=== PATIENT | female | born 1935 | race Caucasian/White ===

== ENCOUNTER 2020-01-15 14:59 | Inpatient (IN) | payer MEDICARE ==
[~2020-01-15] VITALS: Ht 152.4 cm; Wt 49.0 kg
[~2020-01-15 14:59] MED LIST: AMLO2.5T2 PO; ASPI-605 PO; BISA-79 PO; DIPH25CA83 PO; DIPH50VI14 IVP; DOCU-141 PO; ERGO500014 PO; FERR325T6 PO; GEL100GE MC; GENT80PI6 IV; HYDR-3326 PO; LISI10TA5 PO; MINO100T PO; POLY15DR31 OP; PREG100C PO; SENN-18 PO; ZOLP5TAB2 PO
[2020-01-15] MEDS ORDERED: MIRT15TA PO (20:23)
[2020-01-15] MEDS ORDERED: VORI200T4 PO (20:23)
[2020-01-15] MEDS ORDERED: HYDR-4384 PO (20:23)
[2020-01-15] MEDS ORDERED: PREG100C PO (20:23)
[2020-01-15] MEDS ORDERED: LACT-246 PO (20:23)
[2020-01-15] MEDS ORDERED: METO-356 PO (20:23)
[2020-01-15] MEDS ORDERED: MAGN400T8 PO (20:23)
[2020-01-15] MEDS ORDERED: ERGO500040 PO (20:23)
[2020-01-15] MEDS ORDERED: ACET-2154 PO (20:23)
[2020-01-15] MEDS ORDERED: LIDO30AD10 TD (20:23)
[2020-01-15] MEDS ORDERED: METF-440 PO (20:23)
[2020-01-15] MEDS ORDERED: MULT-24 PO (20:23)
[2020-01-15 20:28] VITALS: BP 121/48
[2020-01-15] MEDS ORDERED: Z GUARD REMEDY PASTE 57 GM TUBE TOP PRN (20:30)
--- NOTE | 2020-01-15 21:06 | NUR ---
Pt arrived in the unit at 1945 via gurney accompanied by flatbed stitcher from [facility]. AAO x2-3, [place] speaking, pt speaks little Guatemalan. No acute distress noted. Denies pain/ discomfort. Pertinent assessment done. Notified Dr. Day and Dr. Maxwell of admission. Awaiting med recon from Dr. Maxwell. Safety measures maintained. Call light and personal items within reach. Will continue to monitor.
[2020-01-15] MEDS ORDERED: BISACODYL 5 MG TABLET.DR PO PRN (21:45)
[2020-01-15] MEDS ORDERED: ACETAMINOPHEN 325 MG TABLET PO PRN (21:45)
[2020-01-15] MEDS: ENSURE ENLIVE (VAN) 240 ML LIQUID PO SCH (22:52)
[2020-01-16 05:08] VITALS: BP 135/50
[2020-01-16 07:47] VITALS: BP 151/57
[2020-01-16] MEDS: MULTIVITAMINS,THERAPEUTIC TABLET PO SCH (08:50)
[2020-01-16] MEDS: METFORMIN HCL 500 MG TABLET PO SCH (08:50)
[2020-01-16] MEDS: FERROUS SULFATE 325 MG TABEC PO SCH (08:50)
[2020-01-16] MEDS: MAGNESIUM OXIDE 400 MG TABLET PO SCH (08:50)
[2020-01-16] MEDS: ASPIRIN EC 81 MG TABLET.DR PO SCH (08:50)
[2020-01-16] MEDS: HYDROCODONE/APAP 5-325MG TABLET PO PRN ×2 (08:58→21:43)
[2020-01-16] MEDS: ENSURE ENLIVE (VAN) 240 ML LIQUID PO SCH ×3 (08:58→17:31)
[2020-01-16 09:00] LABS: CARBON DIOXIDE 35 mmol/L (21-32); CHLORIDE 105 mmol/L (98-107); CREATININE 0.8 mg/dL (0.6-1.3); GLUCOSE 120 mg/dL (74-106); POTASSIUM 4.7 mmol/L (3.5-5.1); UREA NITROGEN, BLOOD 12 mg/dL (7-18)
[2020-01-16] MEDS ORDERED: METOPROLOL SUCCINATE XL 25 MG TAB.SR.24H PO SCH (09:00)
[2020-01-16] MEDS ORDERED: METOPROLOL SUCCINATE XL 25 MG TAB.SR.24H PO ONE (09:00)
[2020-01-16] MEDS ORDERED: LIDOCAINE 5% PATCH TD SCH (09:00)
[2020-01-16] MEDS: LIDOCAINE 5% PATCH TD SCH (10:03)
[2020-01-16] MEDS: VORICONAZOLE 200 MG TABLET PO SCH ×2 (10:03→20:54)
--- NOTE | 2020-01-16 11:57 | NUR ---
WOUND CARE CONSULT: PT FOLLOWED BY PLASTIC SURGERY TEAM FOR WOUND CARE. DEFER TO SURGICAL TEAM FOR WOUND TREATMENT PLAN. WILL SEE PRN. DISCUSSED SKIN PROTECTION WITH NURSING STAFF. FIRST STEP LOW AIRLOSS MATTRESS NOTED TO BE ON ORDER. MD IN AGREEMENT WITH PLAN OF CARE.
[2020-01-16 16:02] VITALS: BP 125/64
[2020-01-16 20:06] VITALS: BP 142/60
[2020-01-16] MEDS: MIRTAZAPINE 15 MG TABLET PO SCH (20:54)
[2020-01-16] MEDS: PREGABALIN 100 MG CAPSULE PO SCH (20:54)
--- NOTE | 2020-01-16 23:53 | NUR ---
Received pt resting in bed. AAO x2. No acute distress noted. Brent Pretty 02/08 for back pain. Due meds and prn pain med given as ordered. Safety measures maintained. Call light and personal items within reach. Will continue to monitor.
[2020-01-17 00:09] VITALS: BP 150/62
[2020-01-17 04:12] VITALS: BP 150/62
[2020-01-17 06:40] LABS: BASOPHILS % (AUTO) 0.1 % (0.0-2.0); EOSINOPHILS # (AUTO) 0.2 K/uL (0.0-0.7); EOSINOPHILS % (AUTO) 0.6 % (0.0-7.0); HEMOGLOBIN 10.7 g/dL (10.9-14.3); LYMPHOCYTES # (AUTO) 21.1 K/uL (20.0-40.0); LYMPHOCYTES % (AUTO) 68.9 % (20.5-51.5); MEAN CORPUSCULAR HEMOGLOBIN 29.4 uug (24.7-32.8); MEAN CORPUSCULAR HGB CONC 32 g/dL (32.3-35.6); MONOCYTES # (AUTO) 1.1 K/uL (2.0-10.0); MONOCYTES % (AUTO) 3.6 % (0.0-11.0); NEUTROPHILS # (AUTO) 8.2 K/uL (1.8-8.9); NEUTROPHILS % (AUTO) 26.8 % (38.5-71.5); PLATELET COUNT (AUTO) 338 K/uL (179-408); RED BLOOD CELL COUNT(AUTO) 3.62 MIL/uL (3.63-4.92)
[2020-01-17 07:09] LABS: THYROID STIMULATING HORMONE 0.056 mIU/mL (0.358-3.740)
[2020-01-17 07:20] LABS: BILIRUBIN,TOTAL 0.4 mg/dL (0.2-1.0); MAGNESIUM 1.5 mg/dL (1.8-2.4); PHOSPHOROUS 2.7 mg/dL (2.5-4.9); POTASSIUM 4.6 mmol/L (3.5-5.1); TOTAL PROTEIN, SERUM 5.8 g/dL (6.4-8.2)
[2020-01-17 07:22] LABS: WHITE BLOOD COUNT (AUTO) 30.7 K/uL (3.8-11.8)
[2020-01-17 08:00] VITALS: BP 128/46
[2020-01-17] MEDS: MAGNESIUM OXIDE 400 MG TABLET PO SCH (08:25)
[2020-01-17] MEDS: MULTIVITAMINS,THERAPEUTIC TABLET PO SCH (08:25)
[2020-01-17] MEDS: METFORMIN HCL 500 MG TABLET PO SCH (08:25)
[2020-01-17] MEDS: FERROUS SULFATE 325 MG TABEC PO SCH (08:25)
[2020-01-17] MEDS: METOPROLOL SUCCINATE XL 25 MG TAB.SR.24H PO SCH (08:26)
[2020-01-17] MEDS: ASPIRIN EC 81 MG TABLET.DR PO SCH (08:26)
[2020-01-17] MEDS: VORICONAZOLE 200 MG TABLET PO SCH (08:26)
[2020-01-17] MEDS: ENSURE ENLIVE (VAN) 240 ML LIQUID PO SCH ×3 (08:28→17:29)
[2020-01-17] MEDS: LIDOCAINE 5% PATCH TD SCH (08:28)
[2020-01-17 08:55] LABS: LYMPHOCYTES % (MANUAL) 67 % (20-40); MONOCYTES % (MANUAL) 1 % (2-10); NEUTROPHILS % (MANUAL) 27 % (42-75)
[2020-01-17] MEDS ORDERED: ERGOCALCIFEROL 50,000 UNIT CAPSULE PO SCH (09:00)
[2020-01-17] MEDS ORDERED: MAGNESIUM OXIDE 400 MG TABLET PO ONE (09:30)
[2020-01-17 10:21] LABS: *BILIRUBIN,URIN NEGATIVE (NEGATIVE); *BLOOD, URINE 3+ (NEGATIVE); *CLARITY,URINE CLOUDY (CLEAR); *COLOR,URINE YELLOW (YELLOW); *KETONES,URINE NEGATIVE (NEGATIVE); *UROBILINOGEN,URINE 0.2 E.U./dl (NORMAL); LEUKOCYTE ESTERASE ,URINE 3+ (NEGATIVE); NITRITE, URINE NEGATIVE (NEGATIVE); PH,URINE 8.5 (5.0-8.0); UGLUCOSE NEGATIVE (NEGATIVE)
[2020-01-17 10:31] LABS: SQUAMOUS EPITHELIAL CELL,UR FEW /HPF (NONE SEEN)
[2020-01-17 10:34] LABS: WBC,URINE TNTC /HPF (0-3)
[2020-01-17 10:35] LABS: BACTERIA,URINE FEW /HPF (NONE SEEN); MUCUS,URINE NONE SEEN /LPF (0-FEW); RBC,URINE 80-100 /HPF (0-3)
[2020-01-17 10:36] LABS: CALCIUM PHOSPHATE CRYSTALS,UR RARE /HPF (NONE SEEN)
[2020-01-17 16:16] VITALS: BP 99/51
[2020-01-17 20:27] VITALS: BP 124/55
[2020-01-17] MEDS: MIRTAZAPINE 15 MG TABLET PO SCH (20:48)
[2020-01-17] MEDS: PREGABALIN 100 MG CAPSULE PO SCH (20:48)
[2020-01-17] MEDS: CEphaleXIN 500 MG CAPSULE PO SCH (21:40)
--- NOTE | 2020-01-18 04:16 | NUR ---
Received patient in bed. AAO x 1, only by name, very confused, talking about a baby in her bed and asking to take a good care of him. No acute distress or SOB was noted. On room air. On air mattress. No Complain of pain. Physical assessment done. Safety measures maintained. Fall prevention observed. Skin assessed, skin care rendered. All due medications administered and tolerated well. All needs attended promptly. Bed in locked and low position, side rails up x2 for safety, bed alarm on. Call light and frequently using items within reach. Continue to monitor and will endorse to day shift nurse.
[2020-01-18 06:10] VITALS: BP 133/59
[2020-01-18 08:43] VITALS: BP 104/65
[2020-01-18] MEDS: ENSURE ENLIVE (VAN) 240 ML LIQUID PO SCH ×3 (08:43→17:24)
[2020-01-18] MEDS: MULTIVITAMINS,THERAPEUTIC TABLET PO SCH (08:43)
[2020-01-18] MEDS: FERROUS SULFATE 325 MG TABEC PO SCH (08:43)
[2020-01-18] MEDS: CEphaleXIN 500 MG CAPSULE PO SCH ×2 (08:43→20:51)
[2020-01-18] MEDS: METFORMIN HCL 500 MG TABLET PO SCH (08:43)
[2020-01-18] MEDS: MAGNESIUM OXIDE 400 MG TABLET PO SCH (08:43)
[2020-01-18] MEDS: LIDOCAINE 5% PATCH TD SCH (08:44)
[2020-01-18] MEDS: METOPROLOL SUCCINATE XL 25 MG TAB.SR.24H PO SCH (08:45)
[2020-01-18] MEDS: ASPIRIN EC 81 MG TABLET.DR PO SCH (08:46)
[2020-01-18] MEDS: HYDROCODONE/APAP 5-325MG TABLET PO PRN (09:01)
[2020-01-18 16:40] VITALS: BP 99/46
--- NOTE | 2020-01-18 18:22 | NUR ---
Noted patient with episode of decreased BP 88/42, P 101. Patient denies any pain or discomfort. Elevated legs, encouraged increased fluid intake, repeat BP showed 99/46, P 98. Informed Dr. Liu regarding BP and that metoprolol was held in the morning, as well as episode of dizziness noted during therapy per PT. No order at this time and per MD he will look into it. Patient remains alert, oriented x 2-3, not in any form of distress. Assisted with her needs promptly. Call light and frequently used items placed within patient's reach. Kept patient clean, dry and comfortable. Turned and repositioned every 2 hrs.
--- NOTE | 2020-01-18 19:45 | NUR ---
Awake, and alert. In bed with HOB elevated. Denies any pain/discomforts at this time. Very pleasant and cooperative. Safety measures and fall precaution maintained. Continue care as planned.
[2020-01-18 20:12] VITALS: BP 127/47
[2020-01-18] MEDS: MIRTAZAPINE 15 MG TABLET PO SCH (20:51)
[2020-01-18] MEDS: PREGABALIN 100 MG CAPSULE PO SCH (20:52)
[2020-01-19 04:12] VITALS: BP 111/46
--- NOTE | 2020-01-19 06:06 | NUR ---
Shift End Report: VS stable. Slept good. No complaint presented all night. No fall/injury. All needs attended and met. Good skin/jaqueline care rendered after each incontinence. No significant event reported. Continue current rehab plan of care.
[2020-01-19 08:00] VITALS: BP 110/50
[2020-01-19] MEDS: METFORMIN HCL 500 MG TABLET PO SCH (08:00)
[2020-01-19] MEDS: MULTIVITAMINS,THERAPEUTIC TABLET PO SCH (08:00)
[2020-01-19] MEDS: CEphaleXIN 500 MG CAPSULE PO SCH (08:00)
[2020-01-19] MEDS: ASPIRIN EC 81 MG TABLET.DR PO SCH (08:00)
[2020-01-19] MEDS: FERROUS SULFATE 325 MG TABEC PO SCH (08:00)
[2020-01-19] MEDS: MAGNESIUM OXIDE 400 MG TABLET PO SCH (08:01)
[2020-01-19] MEDS: LIDOCAINE 5% PATCH TD SCH (08:01)
[2020-01-19] MEDS: ENSURE ENLIVE (VAN) 240 ML LIQUID PO SCH ×3 (08:01→17:26)
[2020-01-19] MEDS: METOPROLOL SUCCINATE XL 25 MG TAB.SR.24H PO SCH (08:02)
[2020-01-19] MEDS: HYDROCODONE/APAP 5-325MG TABLET PO PRN ×2 (08:12→15:06)
--- NOTE | 2020-01-19 09:00 | NUR ---
patient left for her infusion therapy to [facility] with ambulance, back brace is on, no distress, patient is alert, oriented x4, verbally responsive, no sob, resp even nonlabored, skin warm and dry to touch.
--- NOTE | 2020-01-19 12:36 | NUR ---
INDIVIDUALIZED PLAN OF CARE
--- NOTE | 2020-01-19 12:39 | NUR ---
PATIENT IS STILL OUT OF PASS FOR HER INFUSION THERAPY
--- NOTE | 2020-01-19 13:02 | NUR ---
PATIENT STILL OUT OF PASS
[2020-01-19 15:43] VITALS: BP 93/47
[2020-01-19 15:46] VITALS: BP 105/45
--- NOTE | 2020-01-19 16:08 | NUR ---
INDIVIDUALIZED PLAN OF CARE
--- NOTE | 2020-01-19 17:14 | NUR ---
spoke to caregiver and daughter in detail about their concerns, patient is alert, oriented x3, no sob, resp even nonlabored, skin warm and dry to touch, no hematuria noted. patient perineal area wound and wound at left buttock almost closed. no drainage noted.
[2020-01-19] MEDS: ACIDOPHILUS/BULGARICUS CHEW TAB PO SCH (17:25)
[2020-01-19] MEDS: CEFEPIME HCL 1 G in IV DEXTROSE 5% 50 ML IV SCH ×3 (17:26→20:43)
--- NOTE | 2020-01-19 17:58 | NUR ---
patient offered her IV antibiotic and IV insertion, patient stated " I do not want IV ti be inserted, it hurts, I refuse IV antibiotic, I have a right to refuse' patient right respected, explained to patient that IV antibiotic is for UTI, infection in the urine, patient stated " if my urine is not hurting me let the bacteria be there. it is not hurting me" explained benefit and risk, patient is alert, oriented x3, clearly understands the meaning of medication and type of infection. Addendum: 01/19/20 at 1803 by QUIQUE JACKSON RN, RN current IV noted with infiltration.
--- NOTE | 2020-01-19 18:19 | NUR ---
daughter made aware as well regarding patient refusal for atb Addendum: 01/19/20 at 1823 by QUIQUE JACKSON RN, RN no distress, no hematuria noted, no odor noted from urine, no fever noted, patient able tolerate melas, patient denied nausea, or vomiting, continue to monitor closely
--- NOTE | 2020-01-19 18:49 | NUR ---
aware Addendum: 01/19/20 at 1850 by QUIQUE JACKSON RN, RN aware regarding patient refusal of medication
--- NOTE | 2020-01-19 19:40 | NUR ---
Awake and alert, sitting on top of the bed, watching TV when received. No s/s of respiratory distress. Denies any pain/discomforts at this time. Safety measures and fall precaution maintained. Continue care as planned.
[2020-01-19 20:21] VITALS: BP 100/51
--- NOTE | 2020-01-19 20:32 | NUR ---
Charge nurse inserted Nicole needle to patient Port A Cath to initiate IV ATB as ordered for UTI. Patient tolerated procedure well. IV ATB initiated as ordered. Will monitor s/s of adverse reaction.
[2020-01-19] MEDS: MIRTAZAPINE 15 MG TABLET PO SCH (20:44)
[2020-01-19] MEDS: PREGABALIN 100 MG CAPSULE PO SCH (20:44)
[2020-01-20 05:28] VITALS: BP 117/39
--- NOTE | 2020-01-20 06:09 | NUR ---
Shift End Report: VS stable. Slept well. No problem/complaint presented. No fall/injury. No s/s of adverse reaction from Maxepime. All needs attended and met. No significant event reported all night. Continue current rehab plan of care.
[2020-01-20] MEDS: HYDROCODONE/APAP 5-325MG TABLET PO PRN ×2 (06:49→17:15)
--- NOTE | 2020-01-20 07:50 | NUR ---
Patient noted resting in bed, no facial cues of pain, no signs of distress noted, call light in reach, bed locked and lowest position, all needs met at this time
[2020-01-20] MEDS: ACIDOPHILUS/BULGARICUS CHEW TAB PO SCH ×2 (08:07→17:15)
[2020-01-20] MEDS: MAGNESIUM OXIDE 400 MG TABLET PO SCH (08:07)
[2020-01-20] MEDS: ASPIRIN EC 81 MG TABLET.DR PO SCH (08:07)
[2020-01-20] MEDS: FERROUS SULFATE 325 MG TABEC PO SCH (08:08)
[2020-01-20] MEDS: METFORMIN HCL 500 MG TABLET PO SCH (08:08)
[2020-01-20] MEDS: LIDOCAINE 5% PATCH TD SCH (08:08)
[2020-01-20] MEDS: MULTIVITAMINS,THERAPEUTIC TABLET PO SCH (08:08)
[2020-01-20] MEDS: ENSURE ENLIVE (VAN) 240 ML LIQUID PO SCH ×3 (08:11→17:16)
[2020-01-20] MEDS: METOPROLOL SUCCINATE XL 25 MG TAB.SR.24H PO SCH (08:11)
[2020-01-20 08:50] VITALS: BP 117/45
[2020-01-20 16:10] VITALS: BP 116/40
[2020-01-20] MEDS: CEFEPIME HCL 1 G in IV DEXTROSE 5% 50 ML IV SCH (17:16)
--- NOTE | 2020-01-20 19:08 | NUR ---
no changes this shift, complaints of pain this shift, PRN pain medication given, all needs met
[2020-01-20 20:00] VITALS: BP 112/40
[2020-01-20] MEDS: PREGABALIN 100 MG CAPSULE PO SCH (20:27)
[2020-01-20] MEDS: MIRTAZAPINE 15 MG TABLET PO SCH (20:27)
[2020-01-21 05:02] VITALS: BP 118/49
--- NOTE | 2020-01-21 06:53 | NUR ---
Shift End Report: VS stable. Slept well. No problem/complaint presented. No fall/injury. All needs attended and met. No significant event reported all night. Continue current rehab plan of care
[2020-01-21 08:00] VITALS: BP 130/57
[2020-01-21] MEDS: FERROUS SULFATE 325 MG TABEC PO SCH (08:35)
[2020-01-21] MEDS: MULTIVITAMINS,THERAPEUTIC TABLET PO SCH (08:35)
[2020-01-21] MEDS: METFORMIN HCL 500 MG TABLET PO SCH (08:35)
[2020-01-21] MEDS: ASPIRIN EC 81 MG TABLET.DR PO SCH (08:35)
[2020-01-21] MEDS: HYDROCODONE/APAP 5-325MG TABLET PO PRN ×2 (08:35→17:36)
[2020-01-21] MEDS: MAGNESIUM OXIDE 400 MG TABLET PO SCH (08:35)
[2020-01-21] MEDS: ACIDOPHILUS/BULGARICUS CHEW TAB PO SCH ×2 (08:35→17:36)
[2020-01-21] MEDS: ENSURE ENLIVE (VAN) 240 ML LIQUID PO SCH ×3 (08:36→17:37)
[2020-01-21] MEDS: METOPROLOL SUCCINATE XL 25 MG TAB.SR.24H PO SCH (08:36)
[2020-01-21] MEDS: LIDOCAINE 5% PATCH TD SCH (08:36)
[2020-01-21 16:57] VITALS: BP 125/42
[2020-01-21] MEDS: CEFEPIME HCL 1 G in IV DEXTROSE 5% 50 ML IV SCH (17:37)
--- NOTE | 2020-01-21 19:20 | NUR ---
Received patient lying in bed. AAOx2-3. In no acute distress. Denies any pain or SOB. Port a cath on right upper chest intact and patent. Safety measure initiated and call pabon within reached.
[2020-01-21 20:23] VITALS: BP 112/43
[2020-01-21] MEDS: MIRTAZAPINE 15 MG TABLET PO SCH (20:25)
[2020-01-21] MEDS: PREGABALIN 100 MG CAPSULE PO SCH (20:25)
[2020-01-22 05:17] VITALS: BP 121/52
--- NOTE | 2020-01-22 06:06 | NUR ---
Slept well last night. In no acute distress. Denies any pain or SOB. Port a cath on right upper chest intact and patent. Needs assessed and attended to. Safety measure maintained and call pabon within reached.
[2020-01-22 08:00] VITALS: BP 119/53
[2020-01-22] MEDS: MAGNESIUM OXIDE 400 MG TABLET PO SCH (09:00)
[2020-01-22] MEDS: ACIDOPHILUS/BULGARICUS CHEW TAB PO SCH ×2 (09:00→16:54)
[2020-01-22] MEDS: FERROUS SULFATE 325 MG TABEC PO SCH (09:00)
[2020-01-22] MEDS: MULTIVITAMINS,THERAPEUTIC TABLET PO SCH (09:00)
[2020-01-22] MEDS: ASPIRIN EC 81 MG TABLET.DR PO SCH (09:01)
[2020-01-22] MEDS: LIDOCAINE 5% PATCH TD SCH (09:02)
[2020-01-22] MEDS: HYDROCODONE/APAP 5-325MG TABLET PO PRN ×2 (09:02→17:00)
[2020-01-22] MEDS: ENSURE ENLIVE (VAN) 240 ML LIQUID PO SCH ×3 (09:02→16:54)
[2020-01-22] MEDS: METOPROLOL SUCCINATE XL 25 MG TAB.SR.24H PO SCH (09:02)
[2020-01-22] MEDS: METFORMIN HCL 500 MG TABLET PO SCH (09:05)
[2020-01-22 15:58] VITALS: BP 132/54
[2020-01-22] MEDS: CEFEPIME HCL 1 G in IV DEXTROSE 5% 50 ML IV SCH (16:54)
[2020-01-22] MEDS ORDERED: FOSFOMYCIN TROMETHAMINE 3 GM PACKET PO ONE (18:30)
[2020-01-22 20:00] VITALS: BP 114/54
--- NOTE | 2020-01-22 20:10 | NUR ---
PHARMACY CLINICAL NOTES (GENTAMICIN DOSING) S: 84 YO female with history of recurrent UTI, immunocompromised with past medical HX of recurrent CLL. Her UC + for citrobacter and E.coli sens. to Gent. ordered gentamicin O: BUN/SCR 14/1.0, WBC 30.7 (RESULTS FROM 01/17/20), Temp 98.5, dosing wt 49 kg, t 1/2 6.93 hrs A/P: Will dose Gentamicin as 60 mg q18h, estimated peak of 6.2 and trough of 1.08. Plan to order peak and trough around 3rd dose (steady state) on 01/23 @ 0900 AM. Will continue to monitor renal fxn and levels and adjust the dose as it becomes necessary.
[2020-01-22] MEDS: PREGABALIN 100 MG CAPSULE PO SCH (21:56)
[2020-01-22] MEDS: MIRTAZAPINE 15 MG TABLET PO SCH (21:56)
--- NOTE | 2020-01-22 22:00 | NUR ---
Patient received sleeping in bed, abusable to name. No signs and symptoms of distress noted, no SOB noted. Denies any pain or discomfort at this time. All due medications administered and taken as tolerable. PM care completed. Patient is clean and comfortable resting in bed. Call light in reach, safety precaution in place; bed locked and lowest position, all needs met at this time. Will continue to monitor.
[2020-01-22] MEDS: AMOXicillin 250 MG CAPSULE PO SCH (22:01)
[2020-01-22] MEDS: GENTAMICIN SULFATE INJ 60 MG in IV DEXTROSE 5% 50 ML IV SCH (22:05)
[2020-01-23 04:35] VITALS: BP 120/52
--- NOTE | 2020-01-23 05:43 | NUR ---
Slept well through the night. No signs of distress noted. Denies any pain or discomfort., no SOB. Port a cath on right upper chest intact and patent. Needs attended to promptly. Safety measure maintained and call light and personal items within patients reach. within reached. will continue plan of acre and endorse next shift accordingly.
[2020-01-23] MEDS: AMOXicillin 250 MG CAPSULE PO SCH ×3 (05:53→21:10)
[2020-01-23] MEDS: FERROUS SULFATE 325 MG TABEC PO SCH (08:27)
[2020-01-23] MEDS: MAGNESIUM OXIDE 400 MG TABLET PO SCH (08:28)
[2020-01-23] MEDS: ACIDOPHILUS/BULGARICUS CHEW TAB PO SCH ×2 (08:28→16:45)
[2020-01-23] MEDS: METFORMIN HCL 500 MG TABLET PO SCH (08:28)
[2020-01-23] MEDS: MULTIVITAMINS,THERAPEUTIC TABLET PO SCH (08:28)
[2020-01-23] MEDS: ENSURE ENLIVE (VAN) 240 ML LIQUID PO SCH ×3 (08:29→16:46)
[2020-01-23] MEDS: METOPROLOL SUCCINATE XL 25 MG TAB.SR.24H PO SCH (08:30)
[2020-01-23] MEDS: ASPIRIN EC 81 MG TABLET.DR PO SCH (08:40)
[2020-01-23] MEDS: HYDROCODONE/APAP 5-325MG TABLET PO PRN ×3 (08:40→22:47)
[2020-01-23 08:51] VITALS: BP 103/49
[2020-01-23] MEDS: LIDOCAINE 5% PATCH TD SCH (08:53)
--- NOTE | 2020-01-23 13:25 | NUR ---
PHARMACY CLINICAL NOTES (GENTAMICIN DOSING) S: 84 YO female with history of recurrent UTI, immunocompromised with past medical HX of recurrent CLL. Her UC + for citrobacter and E.coli sens. to Gent. ordered gentamicin O: BUN/SCR 14/1.0(01/16), WBC 30.7 (RESULTS FROM 01/17/20), Temp 98.2, dosing wt 49 kg, t 1/2 6.93 hrs A/P: Will continue Gentamicin as 60 mg q18h, estimated peak of 6.2 and trough of 1.08. Plan to order peak and trough around 3rd dose (steady state:ordered for tomorrow 9 am dose) . Will continue to monitor renal fxn and levels and adjust the dose as it becomes necessary.
--- NOTE | 2020-01-23 14:42 | NUR ---
patient is alert, oriented x3, no sob, resp even nonlabored, skin warm and dry to touch, skin inspected, no new issues noted, heels floated on pillows, skin intact, beau cath intact. no hematuria noted continue on atb iv for uti, no odor noted from the urine. no adverse reactions noted from atb, tolerated meals well, no nausea, no vomiting Addendum: 01/23/20 at 1744 by QUIQUE JACKSON RN RN patient's right heel noted with closed blister size 5.5cm x5cm, covered with mepilex and kerlix to keep the mepilex in place. patient is on air mattress, heels floated on pillows, educated patient as well to float her heels all the time, patient like to stay on her back, educated patient to stay on her side to relieve the pressure, continue to monitor, wound consult in place.
[2020-01-23] MEDS: GENTAMICIN SULFATE INJ 60 MG in IV DEXTROSE 5% 50 ML IV SCH (14:58)
[2020-01-23 15:30] VITALS: BP 118/55
[2020-01-23 20:00] VITALS: BP 112/53
--- NOTE | 2020-01-23 20:03 | NUR ---
Patient received resting in bed watching TV. Axox 4, in a very happy mood to see me tonight. No signs and symptoms of distress noted, no SOB noted. Denies any pain or discomfort at this time. Skin intact, Both legs elevated by pillow. Patient is clean and comfortable resting in bed. Call light in reach, safety precaution in place; bed locked and lowest position, all needs met at this time. Will continue to monitor. Addendum: 01/23/20 at 2013 by FALLON MASON RN Patient is watching tV. Axox 2, very confused, need reorientation. Forgetful and looses train of thought. Denies any pain or discomfort at the times. No signs and symptoms of distress/SOB noted. Patient is clean and dry at the time. positioned on her left side. Safety measures maintained, call light and all items within patient reach. Will continue to monitor through the night.
[2020-01-23] MEDS: MIRTAZAPINE 15 MG TABLET PO SCH (21:09)
[2020-01-23] MEDS: PREGABALIN 100 MG CAPSULE PO SCH (21:09)
--- NOTE | 2020-01-23 23:12 | NUR ---
Patient moaning and has facial grimace, complaint of back pain. Administered norco, effective. PM care completed patient is clean, dry, and comfortable resting watching TV. All needs attended to promptly.Safety measure maintained, call light with reach. Will continue to monitor through the night.
[2020-01-24 04:00] VITALS: BP 123/42
--- NOTE | 2020-01-24 05:10 | NUR ---
Slept well through the night. No signs of distress noted. Denies any pain or discomfort., no SOB. Port a cath on right upper chest intact and patent. Needs attended to promptly. Safety measure maintained and call light and personal items within patients reach. within reached. Will continue plan of acre and endorse next shift accordingly.
[2020-01-24] MEDS: AMOXicillin 250 MG CAPSULE PO SCH ×3 (06:00→21:16)
[2020-01-24 08:00] VITALS: BP 117/51
[2020-01-24] MEDS: METFORMIN HCL 500 MG TABLET PO SCH (08:35)
[2020-01-24] MEDS: ACIDOPHILUS/BULGARICUS CHEW TAB PO SCH ×2 (08:35→17:19)
[2020-01-24] MEDS: ASPIRIN EC 81 MG TABLET.DR PO SCH (08:35)
[2020-01-24] MEDS: MULTIVITAMINS,THERAPEUTIC TABLET PO SCH (08:35)
[2020-01-24] MEDS: MAGNESIUM OXIDE 400 MG TABLET PO SCH (08:36)
[2020-01-24] MEDS: METOPROLOL SUCCINATE XL 25 MG TAB.SR.24H PO SCH (08:36)
[2020-01-24] MEDS: FERROUS SULFATE 325 MG TABEC PO SCH (08:37)
[2020-01-24] MEDS: LIDOCAINE 5% PATCH TD SCH (08:39)
[2020-01-24] MEDS: ENSURE ENLIVE (VAN) 240 ML LIQUID PO SCH ×3 (08:39→17:19)
[2020-01-24 08:44] LABS: CREATININE 0.9 mg/dL (0.6-1.3); POTASSIUM 4.8 mmol/L (3.5-5.1)
[2020-01-24] MEDS: GENTAMICIN SULFATE INJ 60 MG in IV DEXTROSE 5% 50 ML IV SCH (09:10)
--- NOTE | 2020-01-24 11:43 | NUR ---
WOUND CARE CONSULT: PT SEEN FOR BILATERAL HEEL INTACT DEEP TISSUE INJURIES. RECOMMENDATIONS MADE FOR SKIN PROTECTION AND WOUND CARE. DISCUSSED WITH NURSING STAFF. PT IS ON FIRST STEP MITUL GREWAL MD IN AGREEMENT WITH PLAN OF CARE. WILL FOLLOW. DISCUSSED WITH [employer] ELECTRICAL DESIGNER AND [employer]. Addendum: 01/24/20 at 1146 by DENIZ DE SANTIAGO RN Amended: Links added.
--- NOTE | 2020-01-24 11:58 | NUR ---
PHARMACY CLINICAL NOTES (GENTAMICIN DOSING) S: 84 YO female with history of recurrent UTI, immunocompromised with past medical HX of recurrent CLL. Her UC + for citrobacter and E.coli sens. to Gent. ordered gentamicin O: BUN/SCR 21/0.9, WBC 30.7 (RESULTS FROM 01/17/20), Temp 97.1, dosing wt 49 kg, t 1/2 6.93 hrs gentamicin trough 01/23@0820: 1.0 gentamicin peak 01/23@1020: 6.5 A/P: As trough and peak today within therapeutic range, will continue Gentamicin as 60 mg q18h for now. Will continue to monitor renal fxn and condition and adjust or repeat levels if necessary. Will follow
[2020-01-24 16:00] VITALS: BP 100/57
--- NOTE | 2020-01-24 16:15 | NUR ---
patient noted with DTI to both heels, skin intact, heels floated while in bed, air mattress, applied mepilex and covered with kerlix to keep the mepilex in place, contine to monitor Addendum: 01/24/20 at 1805 by QUIQUE JACKSON RN, RN patient noted with episodes of confusion, reoriented, eating dinner, sitting at wheelchair, no distress noted. Daughter Tamera would like to have a update from , Will endorse accordingly, [phone]
[2020-01-24 20:00] VITALS: BP 124/57
[2020-01-24] MEDS: MIRTAZAPINE 15 MG TABLET PO SCH (20:45)
[2020-01-24] MEDS: PREGABALIN 100 MG CAPSULE PO SCH (20:45)
--- NOTE | 2020-01-24 21:38 | NUR ---
Resting in bed watching TV upon initial rounds. Admitted for T11 vertebral fracture. Fall precautions maintained. Call pabon within reach. No distress noted. AAOx1-2 Confused and disoriented. BIlateral heel dressings intact. Heels elevated up on pillow. Denies any pain nor any discomfort. Call pabon within reach. IV ABT given as scheduled via Rt chest permacath. Will monitor patient. Repositioned for comfort. Turned to sides.VSS.
[2020-01-25] MEDS: GENTAMICIN SULFATE INJ 60 MG in IV DEXTROSE 5% 50 ML IV SCH ×2 (02:06→20:52)
[2020-01-25 04:00] VITALS: BP 139/50
[2020-01-25] MEDS: AMOXicillin 250 MG CAPSULE PO SCH ×3 (06:40→21:02)
[2020-01-25 08:30] VITALS: BP 137/55
--- NOTE | 2020-01-25 08:50 | NUR ---
PHARMACY CLINICAL NOTES (GENTAMICIN DOSING) S: 84 YO female with history of recurrent UTI, immunocompromised with past medical HX of recurrent CLL. Her UC + for citrobacter and E.coli sens. to Gent. ordered gentamicin O: BUN/SCR 21/0.9 (01/23), WBC 30.7 (01/16), Temp 98, dosing wt 49 kg, t 1/2 6.93 hrs gentamicin trough 01/23@0820: 1.0 gentamicin peak 01/23@1020: 6.5 A/P: Will continue same dose of Gentamicin as 60 mg IVPB q18h for now. Will continue to monitor renal fxn and condition and adjust or repeat levels if necessary. Will follow
[2020-01-25] MEDS: METFORMIN HCL 500 MG TABLET PO SCH (09:16)
[2020-01-25] MEDS: MULTIVITAMINS,THERAPEUTIC TABLET PO SCH (09:16)
[2020-01-25] MEDS: ASPIRIN EC 81 MG TABLET.DR PO SCH (09:16)
[2020-01-25] MEDS: ACIDOPHILUS/BULGARICUS CHEW TAB PO SCH ×2 (09:16→17:07)
[2020-01-25] MEDS: FERROUS SULFATE 325 MG TABEC PO SCH (09:16)
[2020-01-25] MEDS: LIDOCAINE 5% PATCH TD SCH (09:19)
[2020-01-25] MEDS: ENSURE ENLIVE (VAN) 240 ML LIQUID PO SCH ×3 (09:19→17:07)
[2020-01-25] MEDS: METOPROLOL SUCCINATE XL 25 MG TAB.SR.24H PO SCH (09:26)
[2020-01-25] MEDS: MAGNESIUM OXIDE 400 MG TABLET PO SCH (09:30)
[2020-01-25 14:38] VITALS: BP 106/46
--- NOTE | 2020-01-25 17:34 | NUR ---
Patient remains alert, oriented x 3, not in any form of distress on room air. Patient is compliant with medications and treatment. Patient assisted with the use of bedside commode for BM. Patient denies any pain or discomfort. Patient sitting on the wheelchair while having dinner. Needs attended to promptly. Patient participated with PT and OT and tolerated. Turned and reposition every 2 hours and off loaded both heels with pillows while in bed and protected with mepilex. Call light and frequently used items placed within patient's reach. Safety measures maintained.
[2020-01-25 20:18] VITALS: BP 135/59
[2020-01-25] MEDS: MIRTAZAPINE 15 MG TABLET PO SCH (20:51)
[2020-01-25] MEDS: PREGABALIN 100 MG CAPSULE PO SCH (20:51)
--- NOTE | 2020-01-25 21:54 | NUR ---
Received pt resting in bed and watching tv. AAO x2-3. No acute distress noted. Denies pain/discomfort. Due meds given as ordered. Air mattress in place. Skin care rendered. Turned and repositioned. Both heels protected with Mepilex and offloaded. Safety measures maintained. Call light and personal items within reach. Will continue to monitor.
[2020-01-25] MEDS: HYDROCODONE/APAP 5-325MG TABLET PO PRN (23:21)
[2020-01-26 04:18] VITALS: BP 128/54
[2020-01-26 05:53] LABS: BASOPHILS % (AUTO) 0.1 % (0.0-2.0); EOSINOPHILS # (AUTO) 0.3 K/uL (0.0-0.7); EOSINOPHILS % (AUTO) 0.6 % (0.0-7.0); HEMOGLOBIN 11.3 g/dL (10.9-14.3); MEAN CORPUSCULAR HGB CONC 32 g/dL (32.3-35.6); RED BLOOD CELL COUNT(AUTO) 3.88 MIL/uL (3.63-4.92)
[2020-01-26 05:54] LABS: BASOPHILS # (AUTO) 0.1 K/uL (0.0-8.0); HEMATOCRIT 35.6 % (31.2-41.9); LYMPHOCYTES # (AUTO) 45.9 K/uL (20.0-40.0); LYMPHOCYTES % (AUTO) 88.4 % (20.5-51.5); MEAN CORPUSCULAR HEMOGLOBIN 29.3 uug (24.7-32.8); MEAN CORPUSCULAR VOLUME 91.8 fL (75.5-95.3); MONOCYTES # (AUTO) 1.1 K/uL (2.0-10.0); MONOCYTES % (AUTO) 2.1 % (0.0-11.0); NEUTROPHILS # (AUTO) 4.6 K/uL (1.8-8.9); NEUTROPHILS % (AUTO) 8.8 % (38.5-71.5); PLATELET COUNT (AUTO) 350 K/uL (179-408)
[2020-01-26 05:59] LABS: CREATININE 0.9 mg/dL (0.6-1.3); POTASSIUM 4.5 mmol/L (3.5-5.1)
[2020-01-26] MEDS: AMOXicillin 250 MG CAPSULE PO SCH ×3 (06:02→21:19)
[2020-01-26 06:11] LABS: WHITE BLOOD COUNT (AUTO) 51.9 K/uL (3.8-11.8)
[2020-01-26 06:33] LABS: LYMPHOCYTES % (MANUAL) 86 % (20-40); MONOCYTES % (MANUAL) 1 % (2-10); NEUTROPHILS % (MANUAL) 13 % (42-75)
--- NOTE | 2020-01-26 06:41 | NUR ---
Received report from Lab regarding critical lab of WBC 51.9. Will notify MD and will endorse accordingly to oncoming shift. All needs attended to promptly. Turned and repositioned q2h. Both heels offloaded. Continue to monitor.
--- NOTE | 2020-01-26 07:01 | NUR ---
Dr. Coleman made rounds in the unit and notified regarding pt's WBC of 51.9
[2020-01-26 08:33] VITALS: BP_SYST 128; BP_SYST 78; BP_DIAS 39; BP_DIAS 45
[2020-01-26] MEDS: MULTIVITAMINS,THERAPEUTIC TABLET PO SCH (08:52)
[2020-01-26] MEDS: ASPIRIN EC 81 MG TABLET.DR PO SCH (08:52)
[2020-01-26] MEDS: METFORMIN HCL 500 MG TABLET PO SCH (08:52)
[2020-01-26] MEDS: ACIDOPHILUS/BULGARICUS CHEW TAB PO SCH ×2 (08:52→16:57)
[2020-01-26] MEDS: FERROUS SULFATE 325 MG TABEC PO SCH (08:53)
[2020-01-26] MEDS: ENSURE ENLIVE (VAN) 240 ML LIQUID PO SCH ×3 (08:53→16:57)
[2020-01-26] MEDS: MAGNESIUM OXIDE 400 MG TABLET PO SCH (08:54)
[2020-01-26] MEDS: METOPROLOL SUCCINATE XL 25 MG TAB.SR.24H PO SCH (08:55)
[2020-01-26] MEDS: LIDOCAINE 5% PATCH TD SCH (09:03)
--- NOTE | 2020-01-26 09:06 | NUR ---
patient is alert, oriented x3, verbally responsive, no sob, resp even nonlabored, skin warm and dry to touch, ate her breakfast, tolerated well, ready to go to rehab, no hematuria noted, no increased body temp noted, vitals taken again BP 128/45, PULSE 97, TEMP 98.0, PAIN 0/10, O2 SAT 97 AT ROOM AIR, no acute distress noted
[2020-01-26 09:09] VITALS: BP 128/45
--- NOTE | 2020-01-26 12:34 | NUR ---
WOUND CARE FOLLOW UP: PT SEEN FOR RE-EVALUATION OF BILATERAL HEEL INTACT DEEP TISSUE INJURIES. NO DRAINAGE, TENDERNESS OR SURROUNDING ERYTHEMA NOTED. RECOMMEND CONTINUE FLOATING HEELS AND PROTECTING WITH MEPILEX FOAM. DISCUSSED WITH NURSING STAFF. MD IN AGREEMENT WITH PLAN OF CARE.
--- NOTE | 2020-01-26 14:23 | NUR ---
PHARMACY CLINICAL NOTES (GENTAMICIN DOSING) S: 84 YO female with history of recurrent UTI, immunocompromised with past medical HX of recurrent CLL. Her UC + for citrobacter and E.coli sens. to Gent. ordered gentamicin O: BUN/SCR 15/0.9, WBC 51.9, Temp 98, dosing wt 49 kg, t 1/ 6.93 hrs gentamicin trough 24@0820: 1.0 gentamicin peak 24@1020: 6.5 A/P: As renal fxn remains stable and condition appears unchanged, will continue same dose of Gentamicin as 60 mg IVPB q18h for now. Will continue to monitor renal fxn and condition and adjust or repeat levels if necessary. Will follow
[2020-01-26] MEDS: GENTAMICIN SULFATE INJ 60 MG in IV DEXTROSE 5% 50 ML IV SCH (14:58)
--- NOTE | 2020-01-26 16:16 | NUR ---
INTERDISCIPLINARY TEAM CONFERENCE
[2020-01-26 16:18] VITALS: BP 124/52
--- NOTE | 2020-01-26 16:37 | NUR ---
patient alert, oriented x3, no sob, resp even nonlabored, skin warm and dry to touch, both heels floated, assessed again with wound nurse, stable, no worsening of DTI noted, assessed wounds for right thigh, one of them noted with scant light yellow drainage, no odor noted, rest of the chronic wounds are dry, continue to monitor, no skin issues noted at back, sacral or cocyx area, still protected with mepilex. turned and repositioned every 2 hours. kept clean and dry.
[2020-01-26 20:15] VITALS: BP 120/51
[2020-01-26] MEDS: PREGABALIN 100 MG CAPSULE PO SCH (20:24)
[2020-01-26] MEDS: MIRTAZAPINE 15 MG TABLET PO SCH (20:24)
[2020-01-26] MEDS: DOXYCYCLINE HYCLATE 100 MG TABLET PO SCH (20:24)
--- NOTE | 2020-01-26 21:33 | NUR ---
Received pt resting in bed and watching tv. AAO x3. No acute distress noted. Denies pain/ discomfort. ID seen pt for elevated WBC and started on vibramycin. IV site patent and intact. Due meds given as ordered. Turned and repositioned. Both heels offloaded. Safety measures maintained. Call light and personal items within reach. Will continue to monitor.
[2020-01-26] MEDS: HYDROCODONE/APAP 5-325MG TABLET PO PRN (21:44)
[2020-01-27] MEDS: AMOXicillin 250 MG CAPSULE PO SCH ×3 (05:35→21:56)
[2020-01-27 06:36] LABS: BASOPHILS # (AUTO) 0.1 K/uL (0.0-8.0); BASOPHILS % (AUTO) 0.2 % (0.0-2.0); EOSINOPHILS # (AUTO) 0.2 K/uL (0.0-0.7); EOSINOPHILS % (AUTO) 0.5 % (0.0-7.0); HEMATOCRIT 35.5 % (31.2-41.9); HEMOGLOBIN 11.3 g/dL (10.9-14.3); LYMPHOCYTES # (AUTO) 42.5 K/uL (20.0-40.0); MEAN CORPUSCULAR HEMOGLOBIN 29.2 uug (24.7-32.8); MEAN CORPUSCULAR HGB CONC 32 g/dL (32.3-35.6); MEAN CORPUSCULAR VOLUME 91.7 fL (75.5-95.3); MONOCYTES # (AUTO) 0.7 K/uL (2.0-10.0); MONOCYTES % (AUTO) 1.4 % (0.0-11.0); NEUTROPHILS # (AUTO) 5.3 K/uL (1.8-8.9); NEUTROPHILS % (AUTO) 10.9 % (38.5-71.5); PLATELET COUNT (AUTO) 345 K/uL (179-408); RED BLOOD CELL COUNT(AUTO) 3.87 MIL/uL (3.63-4.92)
[2020-01-27 07:18] LABS: WHITE BLOOD COUNT (AUTO) 48.9 K/uL (3.8-11.8)
[2020-01-27] MEDS: FERROUS SULFATE 325 MG TABEC PO SCH (08:33)
[2020-01-27] MEDS: LIDOCAINE 5% PATCH TD SCH (08:33)
[2020-01-27] MEDS: MULTIVITAMINS,THERAPEUTIC TABLET PO SCH (08:33)
[2020-01-27] MEDS: ASPIRIN EC 81 MG TABLET.DR PO SCH (08:33)
[2020-01-27] MEDS: ACIDOPHILUS/BULGARICUS CHEW TAB PO SCH ×2 (08:33→17:13)
[2020-01-27] MEDS: METFORMIN HCL 500 MG TABLET PO SCH (08:33)
[2020-01-27] MEDS: ENSURE ENLIVE (VAN) 240 ML LIQUID PO SCH ×3 (08:34→17:13)
[2020-01-27] MEDS: MAGNESIUM OXIDE 400 MG TABLET PO SCH (08:35)
[2020-01-27] MEDS: DOXYCYCLINE HYCLATE 100 MG TABLET PO SCH ×2 (08:35→20:55)
[2020-01-27] MEDS: METOPROLOL SUCCINATE XL 25 MG TAB.SR.24H PO SCH (08:36)
[2020-01-27] MEDS: HYDROCODONE/APAP 5-325MG TABLET PO PRN ×4 (08:37→23:12)
--- NOTE | 2020-01-27 08:45 | NUR ---
patient assisted wheel chair at this time, PRN NORCO given for pain in back, no signs of distress noted, call light in reach, bed locked and in lowest position, all needs met at this time
--- NOTE | 2020-01-27 08:54 | NUR ---
PHARMACY CLINICAL NOTES (GENTAMICIN DOSING) S: 84 YO female with history of recurrent UTI, immunocompromised with past medical HX of recurrent CLL. Her UC + for citrobacter and E.coli sens. to Gent. ordered gentamicin O: BUN/SCR 15/0.9 (01/25) , WBC 48.9, Temp 97.6, dosing wt 49 kg, t 1/2 6.93 hrs gentamicin trough 01/23@0820: 1.0 gentamicin peak 01/23@1020: 6.5 A/P: As renal fxn remains stable and condition appears unchanged, will continue same dose of Gentamicin as 60 mg IVPB q18h for now. Will continue to monitor renal fxn and condition and adjust or repeat levels if necessary. Will follow
[2020-01-27] MEDS: GENTAMICIN SULFATE INJ 60 MG in IV DEXTROSE 5% 50 ML IV SCH (08:59)
[2020-01-27 16:35] VITALS: BP 100/63
[2020-01-27 16:38] LABS: BAND % (MANUAL) 0 % (0-10); NEUTROPHILS % (MANUAL) 9 % (42-75)
[2020-01-27 16:39] LABS: EOSINOPHILS % (MANUAL) 1 % (0-8); LYMPHOCYTES % (MANUAL) 88 % (20-40); MONOCYTES % (MANUAL) 2 % (2-10)
--- NOTE | 2020-01-27 18:51 | NUR ---
no changes noted this shift, will endorse to night clerk
--- NOTE | 2020-01-27 19:15 | NUR ---
Patient in bed, awake. Patient denies any acute distress or pain. Patient has a R chestwall portacath in place, patent, intact and no s/s of infection noted. Patient's vitals are stable. Both feet offloaded, air mattress in place. Safety measures in place. Bed low and locked in position. Call light within reach. Will continue with the plan of care.
[2020-01-27 20:47] VITALS: BP 97/53
[2020-01-27] MEDS: MIRTAZAPINE 15 MG TABLET PO SCH (20:55)
[2020-01-27] MEDS: PREGABALIN 100 MG CAPSULE PO SCH (20:55)
[2020-01-28] MEDS: GENTAMICIN SULFATE INJ 60 MG in IV DEXTROSE 5% 50 ML IV SCH (03:10)
[2020-01-28] MEDS: AMOXicillin 250 MG CAPSULE PO SCH (05:48)
[2020-01-28 05:58] VITALS: BP 105/54
--- NOTE | 2020-01-28 06:47 | NUR ---
Patient slept intermittently throughout the night. Patient is awake and denies any acute distress or pain at this time. R chest wall port-a-cath is patent, clean and no sign of infection noted. Prescribed medications were given, patient tolerated. Patients vitals stable. Repositioned Q2H for comfort, both heels offloaded. Comfort care and needs attended. Pain managed effectively. Fall precaution maintained. Safety measures in place. Bed low and locked in position. Call light within reach. Will endorse to the oncoming nurse accordingly.
--- NOTE | 2020-01-28 07:57 | NUR ---
Pt recieved to care awake, A/o x 2. Portocath is present and intact. Pt was changed and repositioned. Pt was compliant with medications and hygiene care. Pt's feet are off loaded. Dressing on left hip and groin area present and intact. Safety maintained, comfort reassured.
[2020-01-28] MEDS: ENSURE ENLIVE (VAN) 240 ML LIQUID PO SCH ×3 (09:00→17:00)
[2020-01-28] MEDS: METOPROLOL SUCCINATE XL 25 MG TAB.SR.24H PO SCH (09:00)
[2020-01-28] MEDS: METFORMIN HCL 500 MG TABLET PO SCH (09:56)
[2020-01-28] MEDS: ASPIRIN EC 81 MG TABLET.DR PO SCH (09:56)
[2020-01-28] MEDS: MULTIVITAMINS,THERAPEUTIC TABLET PO SCH (09:57)
[2020-01-28] MEDS: FERROUS SULFATE 325 MG TABEC PO SCH (09:57)
[2020-01-28] MEDS: DOXYCYCLINE HYCLATE 100 MG TABLET PO SCH ×2 (09:57→20:28)
[2020-01-28] MEDS: ACIDOPHILUS/BULGARICUS CHEW TAB PO SCH ×2 (09:57→17:46)
[2020-01-28] MEDS: LIDOCAINE 5% PATCH TD SCH (09:57)
[2020-01-28] MEDS: MAGNESIUM OXIDE 400 MG TABLET PO SCH (10:09)
[2020-01-28] MEDS: HYDROCODONE/APAP 5-325MG TABLET PO PRN ×3 (10:31→20:28)
[2020-01-28 11:43] VITALS: BP 105/39
[2020-01-28 16:26] VITALS: BP 108/45
[2020-01-28] MEDS: PREGABALIN 100 MG CAPSULE PO SCH ×2 (18:26→20:28)
--- NOTE | 2020-01-28 18:59 | NUR ---
pt appears in no distress. Pt was compliant with medications. Dressings were changed on patient's left hip and groin. no discharge, site is closing and no packing needed. Pt is denying distress. Pain is managed with current medicaiton regiment.
[2020-01-28 20:00] VITALS: BP 112/49
--- NOTE | 2020-01-28 20:00 | NUR ---
Received patient awake. Patient shows no signs or symptoms of distress at this time. Vital signs stable. Bed set to lowest position. Side rails X2 are up. Will continue to monitor patient.
[2020-01-28] MEDS: MIRTAZAPINE 15 MG TABLET PO SCH (20:28)
[2020-01-29] MEDS: HYDROCODONE/APAP 5-325MG TABLET PO PRN ×2 (00:28→07:17)
--- NOTE | 2020-01-29 02:00 | NUR ---
Received report from AMRIK Lucas for continuity of care.
[2020-01-29 04:00] VITALS: BP 114/40
--- NOTE | 2020-01-29 05:47 | NUR ---
Turned and repositioned patient, changed dressings to sacral and left hip. Patient in no acute distress. Able to follow commands. No complaints of pain or SOB, vitals are WNL. Safety measures given. Will endorse to next shift.
[2020-01-29 08:00] VITALS: BP 123/49
[2020-01-29] MEDS: LIDOCAINE 5% PATCH TD SCH (08:01)
[2020-01-29] MEDS: MAGNESIUM OXIDE 400 MG TABLET PO SCH (08:01)
[2020-01-29] MEDS: METFORMIN HCL 500 MG TABLET PO SCH (08:02)
[2020-01-29] MEDS: DOXYCYCLINE HYCLATE 100 MG TABLET PO SCH ×2 (08:02→20:29)
[2020-01-29] MEDS: PREGABALIN 100 MG CAPSULE PO SCH ×2 (08:02→20:29)
[2020-01-29] MEDS: METOPROLOL SUCCINATE XL 25 MG TAB.SR.24H PO SCH (08:02)
[2020-01-29] MEDS: ACIDOPHILUS/BULGARICUS CHEW TAB PO SCH (08:02)
[2020-01-29] MEDS: ASPIRIN EC 81 MG TABLET.DR PO SCH (08:02)
[2020-01-29] MEDS: MULTIVITAMINS,THERAPEUTIC TABLET PO SCH (08:03)
[2020-01-29] MEDS: FERROUS SULFATE 325 MG TABEC PO SCH (08:03)
[2020-01-29] MEDS: ENSURE ENLIVE (VAN) 240 ML LIQUID PO SCH ×3 (08:04→16:01)
[2020-01-29 16:45] VITALS: BP 121/42
[2020-01-29 20:00] VITALS: BP 110/42
[2020-01-29] MEDS: MIRTAZAPINE 15 MG TABLET PO SCH (20:29)
--- NOTE | 2020-01-29 20:40 | NUR ---
Received pt resting in bed and watching tv. AAO x3. No acute distress noted. Denies pain/ discomfort. Port-a-cath patent and intact. Due meds given as ordered. Turned and repositioned. Both heels offloaded. Air mattress in place. Safety measures maintained. Call light and personal items within reach. Will continue to monitor.
[2020-01-30 04:00] VITALS: BP 137/44
[2020-01-30 06:36] LABS: POTASSIUM 4.7 mmol/L (3.5-5.1)
[2020-01-30 07:00] LABS: BASOPHILS # (AUTO) 0.1 K/uL (0.0-8.0); BASOPHILS % (AUTO) 0.1 % (0.0-2.0); EOSINOPHILS # (AUTO) 0.2 K/uL (0.0-0.7); EOSINOPHILS % (AUTO) 0.5 % (0.0-7.0); HEMATOCRIT 32.7 % (31.2-41.9); HEMOGLOBIN 10.3 g/dL (10.9-14.3); LYMPHOCYTES # (AUTO) 36.7 K/uL (20.0-40.0); LYMPHOCYTES % (AUTO) 85.6 % (20.5-51.5); MEAN CORPUSCULAR HGB CONC 32 g/dL (32.3-35.6); MEAN CORPUSCULAR VOLUME 91.9 fL (75.5-95.3); MONOCYTES % (AUTO) 2.2 % (0.0-11.0); NEUTROPHILS % (AUTO) 11.6 % (38.5-71.5); PLATELET COUNT (AUTO) 283 K/uL (179-408); RED BLOOD CELL COUNT(AUTO) 3.56 MIL/uL (3.63-4.92)
[2020-01-30 07:07] LABS: WHITE BLOOD COUNT (AUTO) 42.9 K/uL (3.8-11.8)
[2020-01-30 07:30] VITALS: BP 108/38
[2020-01-30] MEDS: METOPROLOL SUCCINATE XL 25 MG TAB.SR.24H PO SCH (09:00)
[2020-01-30] MEDS: LIDOCAINE 5% PATCH TD SCH (09:13)
[2020-01-30] MEDS: MULTIVITAMINS,THERAPEUTIC TABLET PO SCH (09:13)
[2020-01-30] MEDS: ASPIRIN EC 81 MG TABLET.DR PO SCH (09:13)
[2020-01-30] MEDS: DOXYCYCLINE HYCLATE 100 MG TABLET PO SCH (09:13)
[2020-01-30] MEDS: FERROUS SULFATE 325 MG TABEC PO SCH (09:13)
[2020-01-30] MEDS: PREGABALIN 100 MG CAPSULE PO SCH (09:13)
[2020-01-30] MEDS: METFORMIN HCL 500 MG TABLET PO SCH (09:13)
[2020-01-30] MEDS: MAGNESIUM OXIDE 400 MG TABLET PO SCH (09:14)
[2020-01-30] MEDS: ENSURE ENLIVE (VAN) 240 ML LIQUID PO SCH ×2 (09:14→12:55)
--- NOTE | 2020-01-30 11:47 | NUR ---
WOUND CARE FOLLOW UP: PT SEEN FOR FOLLOW UP OF BILATERAL HEEL INTACT DEEP TISSUE INJURIES. NO DRAINAGE OR SURROUNDING ERYTHEMA NOTED. RECOMMENDATIONS MADE FOR SKIN PROTECTION AND CONTINUED WOUND CARE. DISCUSSED WITH NURSING STAFF. PT IS ON FIRST STEP MITUL GREWAL MD IN AGREEMENT WITH PLAN OF CARE. Addendum: 01/30/20 at 1149 by DENIZ DE SANTIAGO RN Amended: Links added.
[2020-01-30] MEDS: HYDROCODONE/APAP 5-325MG TABLET PO PRN ×2 (15:02→16:50)
--- NOTE | 2020-01-30 15:17 | NUR ---
patient is alert,oriented x4, verbally responsive, no sob,resp even nonlabored, skin warm and dry to touch, no sob, resp even nonlabored,skin warm and dry to touch, patient discharged home, with son, transferred safely to car with assist, discharge instructions given to patient , follow up with wound care clinic, oncologist, primary doctor, prescription given to patient, patient verbalized understanding of it, belongings accounted and signed, ID removed, beau cath intact, corbett needle removed under supervision of charge nurse on duty, flushed with normal saline before removing corbett needle. DTI to both heel intact, skin intact, dry, noted resolving DTI to both heels, no skin issues to buttocks, scant drainage noted to left groin #1 chronic wounds, other chronic wounds dry and close. no distress noted.
[2020-01-30 15:30] VITALS: BP 124/58
== END 2020-01-30 15:20 | disposition home health service (06) | DRG 559 ==
PROVIDERS: ADMIT Physical Medicine & Rehabilitation Pain Medicine; ATTEND Physical Medicine & Rehabilitation Pain Medicine
DX: S22.089D Unspecified fracture of T11-T12 vertebra, subsequent encounter for fracture with routine healing (principal); G92 Toxic encephalopathy; E43 Unspecified severe protein-calorie malnutrition; N39.0 Urinary tract infection, site not specified; C91.10 Chronic lymphocytic leukemia of B-cell type not having achieved remission; D68.59 Other primary thrombophilia; M86.652 Other chronic osteomyelitis, left thigh; E11.9 Type 2 diabetes mellitus without complications; I10 Essential (primary) hypertension; W19.XXXD Unspecified fall, subsequent encounter; M19.90 Unspecified osteoarthritis, unspecified site; M81.0 Age-related osteoporosis without current pathological fracture; Z87.440 Personal history of urinary (tract) infections; Z90.710 Acquired absence of both cervix and uterus; Z96.642 Presence of left artificial hip joint; B96.89 Other specified bacterial agents as the cause of diseases classified elsewhere; D64.9 Anemia, unspecified; E04.1 Nontoxic single thyroid nodule; E05.90 Thyrotoxicosis, unspecified without thyrotoxic crisis or storm; F03.90 Unspecified dementia, unspecified severity, without behavioral disturbance, psychotic disturbance, mood disturbance, and anxiety; G62.9 Polyneuropathy, unspecified; G89.29 Other chronic pain; I25.10 Atherosclerotic heart disease of native coronary artery without angina pectoris; I70.0 Atherosclerosis of aorta; K44.9 Diaphragmatic hernia without obstruction or gangrene; M25.78 Osteophyte, vertebrae; M47.816 Spondylosis without myelopathy or radiculopathy, lumbar region; M48.07 Spinal stenosis, lumbosacral region; M48.10 Ankylosing hyperostosis [Forestier], site unspecified; N20.0 Calculus of kidney; M77.9 Enthesopathy, unspecified; Z79.2 Long term (current) use of antibiotics; Z98.1 Arthrodesis status; R32 Unspecified urinary incontinence; Z87.442 Personal history of urinary calculi; R16.1 Splenomegaly, not elsewhere classified; S71.002D Unspecified open wound, left hip, subsequent encounter; X58.XXXD Exposure to other specified factors, subsequent encounter; Z88.8 Allergy status to other drugs, medicaments and biological substances; L89.159 Pressure ulcer of sacral region, unspecified stage; L89.90 Pressure ulcer of unspecified site, unspecified stage
CPT/HCPCS: 36415; 70030-TC; 71045; 82652; 83735; 84100; 84443; 85025; 87077; 87086; A4663; J0692; J1580; J7040; J7060